=== PATIENT | male | born 1965 | race Caucasian/White ===

== ENCOUNTER 2021-07-24 13:04 | Outpatient (REF) | payer OTHER, SELFPAY ==
[2021-07-24 14:25] LABS: Alanine Aminotransferase 38 U/L (0-40); Anion Gap 12 (12-20); Aspartate Amino Transferase 68 U/L (5-37); Blood Urea Nitrogen 9 mg/dL (9-16); Calcium 9.4 mg/dL (8.4-10.2); Carbon Dioxide 22 mmol/L (22-29); Chloride 108 mmol/L (96-108); Cholesterol 195 mg/dL; Estimated Glomerular Filt Rate > 60; Glucose Fasting 124 mg/dL (60-99); HDL Cholesterol 44 mg/dL; LDL Cholesterol Calculated 103 mg/dl; Potassium 4.1 mmol/L (3.3-5.1); Sodium 138 mmol/L (135-145); Triglycerides 241 mg/dL
== END 2021-07-24 13:05 | disposition home or self-care (01) ==
LOC: HO.HMGCLDS 13:04
PROVIDERS: Visit Provider Internal Medicine
DX: I10 Essential (primary) hypertension (principal)
CPT/HCPCS: 36415; 80048; 80061; 84450; 84460

== ENCOUNTER 2022-03-30 07:53 | Outpatient (REF) | payer OTHER, MEDICAID, SELFPAY ==
--- NOTE | ~2022-03-30 | XR_ITS ---
EXAMINATION: XR SHOULDER, RIGHT CLINICAL INFORMATION: Pain COMPARISON: None TECHNIQUE: 3 views of the right shoulder. FINDINGS: The bones and soft tissues are normal. No fracture. Glenohumeral and acromioclavicular alignment is anatomic with normal joint space. No abnormal soft tissue calcifications. XR/XR shoulder RT min 2V IMPRESSION: Unremarkable right shoulder.
== END 2022-03-30 07:54 | disposition home or self-care (01) ==
LOC: HO.HOSX 07:53
PROVIDERS: Visit Provider Physician Assistant
DX: M75.101 Unspecified rotator cuff tear or rupture of right shoulder, not specified as traumatic (principal)
CPT/HCPCS: 20610; 73030; J1040

== ENCOUNTER 2022-04-21 14:00 | Outpatient (RCR) | payer OTHER, MEDICAID, SELFPAY ==
--- NOTE | 2022-03-17 13:06 | MHC.PT.EP ---
[facility] [place] Office [place] Office [place] Office [address] Demarcus Carter [address] [phone] F: [phone] F: [phone] F: [phone] F: [phone] Physical Therapy Plan of Care Date of Evaluation: Date of Surgery: Diagnosis: This is a 56 yo male presenting to skilled PT with a script for R sciatica. Assessment: This is a 56 yo male presenting to skilled PT with a script for R sciatica. Patient presented to the walk-in clinic on 02/18 complaining of right lower back pain radiating to right thigh. He reports that he pulled something in his back but is unable to tell me how or when he did it. 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 He was placed on meloxicam and tramadol which did not help much. He followed up with his PCP on 03/10 who put him on prednisone, cyclobenzaprine and ordered PT. He denies any history of trauma, no history of falls, no lifting incidents at work. Today at eval pain is located at the R side low back, R hip, thigh and lower leg to foot (foot is numb). Pain runs posteriorly down the leg and is described as a stabbing pain, like I am getting stuck with knives . Pain increases with walking, standing and laying in bed. Pain decreases with sitting some but is constant in nature. Assessment reveals pain that ranges up to a 8/10 and is constant in nature. He demos decreased RLE and lumbar ROM, decreased RLE and core/back strength, impaired gait pattern due to pain as well as gross functional decline with work related tasks, walking and most prolonged positioning. He is a good/fair candidate for skilled PT 2x/wk for 4 wks. He does not have a date to return to his PCP but states that he is supposed to go back to work tonight and does not feel like he can. Educated him that I cannot write him a note to remain out of work. Patient tended to perseverate on this so I educated him to walk next door to speak with his PCP about FMLA and note. Educated him to call office to schedule once he figures out his work schedule. 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 Manual therapy to restore motion and function. Therapeutic exercise to improve strength and flexibility. Neuromuscular re-education for posture and balance. Therapeutic activities to return to functional activities of daily living. Electronically signed by: Angelita Choudhury PT Please sign and return to therapist. Thank you for your referral.
--- NOTE | 2022-08-12 08:50 | MHC.PT.DC ---
[facility] [place] Office [place] Office [place] Office [address] Demarcus Carter [address] [phone] F: [phone] F: [phone] F: [phone] F: [phone] Physical Therapy Discharge Report Diagnosis: This is a 56 yo male presenting to skilled PT with a script for R sciatica. Date of Surgery: Date of Evaluation: 03/17/22 Date of Discharge: 08/12/22 Treatments to Date: 7 Cancellations to Date: 0 No Shows to Date: 0 Discharge Status: Improved Function Independent with HEP Patient Elected to Stop Discharge Summary: Pt did not follow up with his last visit for a final assessment. From last treatment note: DC anticipated Next Visit as Pt is I with his basic program for lumbar stab and though he persists with LE sx and LBP he reports he is able to centralize and improve his symptoms. Electronically signed by: Edward Lindsey PT. Please sign and return to therapist. Thank you for your referral.
== END 2022-08-12 08:50 | disposition home or self-care (01) ==
LOC: HO.PTCHIC 14:00
PROVIDERS: PCP Internal Medicine; Visit Provider Internal Medicine
DX: M54.31 Sciatica, right side (principal)
CPT/HCPCS: 97110; 97162; 97530

== ENCOUNTER 2022-06-22 14:00 | Outpatient (RCR) | payer OTHER, MEDICAID, SELFPAY ==
--- NOTE | 2022-05-27 17:35 | MHC.PT.EP ---
[facility] [place] Office [place] Office [place] Office [address] Gayath[address] [phone] F: [phone] F: [phone] F: [phone] F: [phone] Physical Therapy Plan of Care Date of Evaluation: Date of Surgery: Diagnosis: Painful arc syndrome of right shoulder Assessment: Pt is a 56 y/o male referred to PT for eval and treat of painful arc syndrome of R shoulder resulting in decreased tolerance for reaching high shelves, dressing pullovers, reaching his back and neck for hygiene and dressing, lifting objects of weight and performing HH chores secondary to decreased R shoulder ROM and strength, decreased scapular posture, TTP of anterior and posterior R shoulder, and pain. Pt is deemed an appropriate candidate to receive skilled PT services to address their physical impairments in order to improve his functional ability. Frequency and Duration: The patient will be seen 2 x / wk x 5 wks. Short Term Goals: Initiate HEP. Symmetrical AROM shoulder flexion achieved. Cryptologic Supervisor Goals: I with HEP. Pt will be able to place objects on high shelf with at most 3/10 difficulty; initial: 10/10 difficulty. Improve R shoulder ER MMT by at least 1/2 MMT grade. Pt will be able to reach his back for dressing and hygiene with managed Sx. initial 7/10 difficulty. Treatment Plan: Modalities to reduce pain, spasms and effusion. Manual therapy to restore motion and function. Therapeutic exercise to improve strength and flexibility. Neuromuscular re-education for posture and balance. Therapeutic activities to return to functional activities of daily living. Electronically signed by: Edward Lindsey PT. Please sign and return to therapist. Thank you for your referral.
--- NOTE | 2022-08-12 08:38 | MHC.PT.DC ---
[facility] [place] Office [place] Office [place] Office [address] Demarcus Carter 140 [facility] [phone] F: [phone] F: [phone] F: [phone] F: [phone] Physical Therapy Discharge Report Diagnosis: Painful arc syndrome of right shoulder Date of Surgery: Date of Evaluation: 05/27/22 Date of Discharge: 08/12/22 Treatments to Date: 6 Cancellations to Date: 0 No Shows to Date: 0 Discharge Status: Independent with HEP Patient Elected to Stop Discharge Summary: Electronically signed by: Edward Lindsey PT. Please sign and return to therapist. Thank you for your referral.
== END 2022-08-12 08:37 | disposition home or self-care (01) ==
LOC: HO.PTCHIC 14:00
PROVIDERS: PCP Internal Medicine; Visit Provider Physician Assistant
DX: M75.101 Unspecified rotator cuff tear or rupture of right shoulder, not specified as traumatic (principal)
CPT/HCPCS: 97110; 97161

== ENCOUNTER 2022-11-23 13:58 | Outpatient (REF) | payer OTHER, MEDICAID, SELFPAY ==
[2022-11-23 16:52] LABS: Alanine Aminotransferase 34 U/L (0-40); Anion Gap 11 (12-20); Aspartate Amino Transferase 47 U/L (5-37); Blood Urea Nitrogen 11 mg/dL (9-16); Calcium 8.9 mg/dL (8.4-10.2); Carbon Dioxide 25 mmol/L (22-29); Chloride 109 mmol/L (96-108); Cholesterol 183 mg/dL; Estimated Glomerular Filt Rate > 60; Glucose Fasting 102 mg/dL (60-99); HDL Cholesterol 56 mg/dL; LDL Cholesterol Calculated 102 mg/dl; Potassium 4.2 mmol/L (3.3-5.1); Sodium 141 mmol/L (135-145); Triglycerides 128 mg/dL
[2022-11-23 17:09] LABS: Vitamin D 25-OH Total 4.9 ng/mL (>30)
== END 2022-11-23 13:59 | disposition home or self-care (01) ==
LOC: HO.HMGCLDS 13:58
PROVIDERS: PCP Internal Medicine; Visit Provider Internal Medicine
DX: D12.6 Benign neoplasm of colon, unspecified (principal); E66.9 Obesity, unspecified; I10 Essential (primary) hypertension
CPT/HCPCS: 36415; 80048; 80061; 82306; 84450; 84460

== ENCOUNTER 2022-12-21 10:32 | Outpatient (AMB) | payer OTHER, MEDICAID, SELFPAY ==
--- NOTE | 2022-12-21 11:13 | MHC.PC.OV ---
Vital Signs 12/21/22 11:15 Height 6 ft 2 in Weight 255 lb BMI 32.7 BP 130/90 H Blood Pressure Location Lt brachial Position Sitting Pulse 83 Pulse Source Pulse Oximeter Pulse Oximetry (%) 95 Oxygen Delivery Method Room Air Intake Visit Reasons: Possible side effects from medication? Intake Note: Pt is here today c/o ED and says it due to possible side effects from his b/p med Allergies No Known Allergies Allergy (Verified 09/17/24 15:57) Medication List - Last Reconciled 09/17/24 by Diane White MD amlodipine 5 mg PO QAM cholecalciferol (vitamin D3) 1,250 mcg PO 2XW 3 months tadalafil (Cialis) 20 mg PO .PRN PRN 30 days Tobacco use date assessed: 12/21/22 HPI Possible side effects from medication? HPI Details 58-year-old male with history of obesity, hypertension, presenting today complaining of erectile dysfunction which he thinks is a side effect from taking his amlodipine prescription. Has been having hard time maintaining being held directions during sexual intercourse and has been having infrequent morning erections. Denies any other complaints. [facility] Medical History Vitamin D deficiency Erectile dysfunction Sciatica, right side Tubular adenoma of colon Chronic right shoulder pain Obesity (BMI 30.0-34.9) Essential hypertension Surgical History Hx of colonoscopy Family History Unknown Substance use disorder Social History Housing: House Patient Tobacco Use Status: Current everyday Tobacco user Tobacco use type: Cigar e-Cigarette/Vaping Use: Never Used service: No Current occupational status: employed Current occupation: left hand dominant Cognitive needs: No Hearing needs: No Vision needs: No Questionnaire PHQ-9 Over the last 2 weeks, how often have you been bothered by any of the following problems? 1. Little interest or pleasure in doing things: not at all 2. Feeling down, depressed, or hopeless: not at all 3. Trouble falling or staying asleep, or sleeping too much: several days 4. Feeling tired or having little energy: not at all 5. Poor appetite or overeating: not at all 6. Feeling bad about yourself - or that you are a failure or have let yourself or your family down: not at all 7. Trouble concentrating on things, such as reading the newspaper or watching television: not at all 8. Moving or speaking so slowly that other people could have noticed. Or the opposite - being so fidgety or restless that you have been moving around a lot more than usual: not at all 9. Thoughts that you would be better off or of hurting yourself in some way: not at all Total score: 1 Depression Screening Interpretation: Negative 97884 - PHQ-9 Billing: Yes Source: Developed by Drs. Catalino Curtis, Kaelyn Smith, Carlos Wallace and colleagues, with an educational moises from [employer]. Thrive Questionnaire Date Thrive assessed: 08/03/22 I am a: Patient What is your living situation today?: I have a steady place to live Within the past 12 months, did the food you bought not last and you didn't have the money to get more?: Never true Within the past 12 months, did you worry whether your food would run out before you got money to buy more?: Never true Do you have trouble paying for medicines?: No Do you have trouble getting transportation to medical appointments?: No Do you have trouble paying your heating and electricity bill?: No Do you have trouble taking care of your child, family member or friend?: No Do you have trouble with day-to-day activities such as bathing, preparing meals, shopping, managing finances, etc.?: No Are you currently unemployed and looking for a job?: No Are you interested in more education?: No AUDIT C Alcohol Use Questionnaire (AUDIT-C) 1. How often do you have a drink containing alcohol?: Monthly or less 2. How many drinks containing alcohol do you have on a typical day when you are drinking?: 1 or 2 3. How often do you have six or more drinks on one occasion?: Never Total Score: 1 KAROLINE-7 AMB Questionnaire KAROLINE-7 Date KAROLINE - 7 assessed: 12/21/22 Feeling nervous, anxious, or on edge: 0 = Not at all Not being able to stop or control worryin = Not at all Worrying too much about different things: 0 = Not at all Trouble relaxin = Not at all Being so restless that it is hard to sit still: 0 = Not at all Becoming easily annoyed or irritable: 0 = Not at all Feeling afraid as if something awful might happen: 0 = Not at all Total KAROLINE-7 score (0-4 normal; 5-9 mild; 10-14 moderate; 15-21 severe): 0 Source: Developed by Drs. Catalino Curtis, Kaelyn Smith, Carlos Wallace and colleagues, with an educational moises from [employer]. KAROLINE-7 Assessment Billing KAROLINE-7 Assessment Tool: KAROLINE-7 Assessment 45577 Review of Systems Const All systems reviewed & are unremarkable except as noted in HPI and below Physical exam (Primary Care) Vital Signs: Last Vital Signs Pulse 83 12/21/22 11:15 BP 130/90 H 12/21/22 11:15 Pulse Ox 95 12/21/22 11:15 Oxygen Delivery Method Room Air 12/21/22 11:15 BMI result Body Mass Index 32.7 Tobacco/Smoking Status: Tobacco use Status Tobacco use date assessed 12/21/22 12/21/22 11:20 Patient Tobacco Use Status Current everyday Tobacco 12/21/22 11:15 Tobacco use type Cigar 12/21/22 11:15 e-Cigarette/Vaping Use Never Used 12/21/22 11:15 PHQ-9: PHQ-9 Score PHQ-9: Total score 1 12/21/22 11:35 Depression Screening Interpretation: Negative Thrive Assessment: Date of Thrive Assessment Date Thrive assessed 08/03/22 12/21/22 11:15 Const Other: Obese, Alert oriented x3, no acute cardiorespiratory distress noted Orientation/consciousness: patient oriented x3 Neck Other: Thyroid gland non palpable Neck: Yes full ROM, Yes no lymphadenopathy and Yes supple Resp Auscultation: clear to auscultation bilaterally Cardio Other: S1-S2 present regular rate and rhythm GI Palpation (GI): Soft to palpation, nontender, no guarding and no masses Male General Exam: Yes normal external exam Neuro General: patient oriented x3, moves all extremities, Normal light touch and pain sensation and no focal motor deficits Psych Appearance: grossly normal and well kempt Mental Status: mental status grossly normal Affect: normal affect Coding Level of Care Code Est Pt Level 4 (97091) Diagnoses Erectile dysfunction N52.9 Vitamin D deficiency E55.9 Essential hypertension I10 Additional Codes KAROLINE-7 Assessment Billing - KAROLINE-7 Assessment Tool: KAROLINE-7 Assessment 60620 ([id number])
[2022-12-21 11:15] VITALS: BP 130/90; PULSE 83; O2SAT 95; BMI 32.7
== END 2022-12-21 11:38 | disposition home or self-care (01) ==
PROVIDERS: PCP Internal Medicine; Visit Provider Internal Medicine
DX: N52.9 Male erectile dysfunction, unspecified (principal); E55.9 Vitamin D deficiency, unspecified; I10 Essential (primary) hypertension
CPT/HCPCS: 99499

== ENCOUNTER 2023-02-22 15:05 | Outpatient (AMB) | payer OTHER, SELFPAY ==
--- NOTE | 2023-02-22 15:05 | A.OFFVIS_ITS ---
Intake Intake Visit Reasons: Erectile Dys Intake Note: New Patient presents for initial visit Erectile Dysfunction Urology Medications: none Blood Thinner: none Diabetic: no Inhalation Therapy Teacher Required: No Accompanied by: Self / Same As Patient Allergies No Known Allergies Allergy (Verified 02/23/23 19:45) Medication List - Last Reconciled 02/23/23 by JAMES Mejia amlodipine 5 mg PO QAM cholecalciferol (vitamin D3) 1,250 mcg PO 2XW 3 months tadalafil (Cialis) 20 mg PO .PRN PRN 30 days HPI HPI Comments History of Present Illness Details Sean is a very pleasant 57-year-old male patient of Dr. White. He has a past medical history of chronic right shoulder pain, erectile dysfunction, hypertension, obesity, vitamin-D deficiency, and tubular adenoma of colon. He presents to the office today as a new patient for erectile dysfunction. In discussion with the patient today he reports to be having intermittent issues with erectile dysfunction. He reports at times he gets morning erections as well as adequate erections for penetration however describes these episodes as very infrequent. 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 He also endorses to using recreational marijuana at times in smokes cigars daily. He denies any signs and symptoms of sleep apnea. When asked he denies any issues with his urination. He denies urinary urgency, urinary frequency, incontinence, nocturia, hematuria, dysuria, foul smelling urine, changes to urinary stream, flank pain, fever, and or chills. He is happy with his current voiding parameters. Discussed at length lifestyle modifications to assist with erectile dysfunction as well as overall health and well-being. JOEY offered however deferred. In office urinalysis results reviewed with the patient today. He otherwise offers no issues or concerns at this time. [facility] Medical History Chronic right shoulder pain Erectile dysfunction Essential hypertension Obesity (BMI 30.0-34.9) Sciatica, right side Tubular adenoma of colon Vitamin D deficiency Surgical History Hx of colonoscopy Family History Unknown Substance use disorder Social History Housing: House Patient Tobacco Use Status: Current everyday Tobacco user Tobacco use type: Cigar e-Cigarette/Vaping Use: Never Used service: No Current occupational status: employed Current occupation: left hand dominant Cognitive needs: No Hearing needs: No Vision needs: No Review of Systems Const Reports as per HPI Eyes Reports no additional complaints ENT Reports no additional complaints Card Reports as per HPI Resp Reports no additional complaints GI Reports as per HPI Reports as per HPI Musc Reports as per HPI Neuro Reports no additional complaints Psych Reports no additional complaints Physical Exam Const General: cooperative, comfortable, no acute distress, well developed, alert and awake Nutritional Appearance: overweight Orientation/consciousness: patient oriented x3 Limitations: no limitations HEENT Head: Yes normal to inspection, Yes normocephalic and Yes atraumatic Ears: hearing grossly normal bilaterally Eyes General: appearance normal, both eyes and all related structures Neck Neck: Yes normal visual inspection and Yes trachea midline Chest Chest palpation & inspection: normal inspection of the chest Resp Effort & Inspection: normal respiratory effort and able to speak in complete sentences Cardio Rate: regular rate GI Inspection: Yes normal to inspection General: Yes no CVA tenderness Back/Spine/Pelvis Back: no CVA tenderness Skin General skin exam: no rashes or lesions noted Neuro General: patient oriented x3 Extrem General: Yes normal to inspection Psych Appearance: grossly normal and well kempt Mental Status: mental status grossly normal Speech and movement: Normal speech and movement present and Clear speech present Affect: normal affect Attitude: cooperative Thought process: Normal thought process present Thought content: Normal thought content present Insight: Good insight present (Psych) Judgement: Good judgement present (Psych) Results AMB Urinalysis, Automated UA Leukoctes 0 Chante/uL Last Edit by SevenLunchesbet[employer] Contreras on 02/22/23 15:20 UA Nitrite Last Edit by [employer] Ben on 02/22/23 15:20 UA Urobilinogen 0.2 mg/dL Last Edit by SevenLunchesbeto Contreras on 02/22/23 15:20 UA Protein 0 mg/dL Last Edit by SevenLunchesbeto Contreras on 02/22/23 15:20 UA pH 6.0 Last Edit by [employer] Ben on 02/22/23 15:20 UA Blood 0 Gideon/uL Last Edit by Maritza Conrteras on 02/22/23 15:20 UA Specific [place] 1.015 Last Edit by Maritza Jonesnik on 02/22/23 15:20 UA Ketone Last Edit by Maritza Jonesnik on 02/22/23 15:20 UA Bilirubin 0 mg/dL Last Edit by Seanmalcolm Karennik on 02/22/23 15:20 UA Glucose 0 mg/dL Last Edit by Seanmalcolm Karennik on 02/22/23 15:20 Results Reviewed Results Reviewed: Laboratory Last Values Urine pH (Auto) 6.0 02/22/23 15:07 Specific [place] (Auto) 1.015 02/22/23 15:07 Urine Protein (Auto) 0 mg/dL 02/22/23 15:07 Glucose (UA)(Auto) 0 mg/dL 02/22/23 15:07 Urine Blood (Auto) 0 Gideon/uL 02/22/23 15:07 Urine Bilirubin (Auto) 0 mg/dL 02/22/23 15:07 Urine Urobilinogen (Auto) 0.2 mg/dL 02/22/23 15:07 Leukocyte Esterase (Auto) 0 Chante/uL 02/22/23 15:07 Assessment & Plan Assessment & Plan (1) Erectile dysfunction: Code(s): N52.9 - Male erectile dysfunction, unspecified (2) Low libido: Code(s): R68.82 - Decreased libido Plan In office urinalysis results reviewed with the patient today. Discussed at length lifestyle modifications such as adequate sleep, weight loss, limiting/ quitting smoking for improvement in erectile dysfunction as well as overall health and well-being Will obtain PSA, testosterone free and total for further assessment evaluation. Prescription provided for p.r.n. tadalafil as needed for sexual activity. Patient otherwise denies any urinary issues or concerns at this time. Patient reports to be happy with current voiding parameters. Follow up in one month with labs to be completed prior; or sooner with any ques tions, concerns, and or issues. Orders: Orders Prostate Specific Antigen 02/22/23 N40.0 - Benign prostatic hyperplasia without lower urinary tract symptoms Testosterone, Free/Total 02/22/23 N52.9 - Male erectile dysfunction, unspecified AMB Urinalysis Automated 02/22/23 Z13.9 - Encounter for screening, unspecified Medications: New tadalafil (Cialis) administer approximately 30min before sexual activity; do not use more than 1 dose per 24hrs [id number] [facility] [id number] Member [id number] 20 mg PO .PRN 30 days PRN 60 tabs 0RF sexual activity Patient Instructions: The patient had an opportunity to ask questions regarding the treatment plan. All questions were answered. Physical exam, labs, and imaging were discussed and reviewed in detail. As well as risks, benefits, and discussion of treatment choices. No major barriers to understanding were identified. The patient expressed understanding and agreement with the above treatment plan. The patient was made aware they should contact our office by phone for worsening of their current condition, the appearance of new symptoms, or with any questions or concerns. Compliance is encouraged with any medications and follow up testing that is ordered. It is a privilege to be allowed the opportunity to participate in? your urological care.? Again, if you have any questions or concerns If you have any questions or concerns please do not hesitate to contact me. The office is [phone]. This note is constructed using voice recognition software. While every effort has been made to ensure accuracy laborer airport maintenance errors may have been included. Yours sincerely, JAMES Mejia Coding Level of Care Code New Pt Level 4 (53844) Diagnoses Erectile dysfunction N52.9 Low libido R68.82
== END 2023-02-22 15:56 | disposition home or self-care (01) ==
PROVIDERS: PCP Internal Medicine; Visit Provider Nurse Practitioner Family
DX: N52.9 Male erectile dysfunction, unspecified (principal); R68.82 Decreased libido
CPT/HCPCS: 99204

== ENCOUNTER → 2023-02-22 15:05 | Outpatient (BNVA) | payer OTHER, MEDICAID, SELFPAY | PROVIDERS: PCP Internal Medicine; Visit Provider Nurse Practitioner Family ==

== ENCOUNTER 2023-04-23 13:48 | Outpatient (REF) | payer OTHER, SELFPAY ==
[2023-04-29 13:44] LABS: Testosterone, Free 46.5 pg/mL (35.0-155.0); Testosterone, Total 517 ng/dL (250-1100)
== END 2023-04-23 13:49 | disposition home or self-care (01) ==
LOC: HO.HMGCLDS 13:48
PROVIDERS: PCP Internal Medicine; Visit Provider Internal Medicine
DX: Z12.5 Encounter for screening for malignant neoplasm of prostate (principal); N52.9 Male erectile dysfunction, unspecified; E55.9 Vitamin D deficiency, unspecified; N40.0 Benign prostatic hyperplasia without lower urinary tract symptoms; I10 Essential (primary) hypertension
CPT/HCPCS: 36415; 80048; 82306; 84153; 84402; 84403

== ENCOUNTER 2025-02-19 12:56 | Outpatient (REF) | payer OTHER, SELFPAY ==
[2025-02-19 16:31] LABS: Hemoglobin A1C 154.5750 umol/L; Total Hemoglobin (HGBA1C) 4187.0716 umol/L
[2025-02-19 16:38] LABS: Alanine Aminotransferase 43 U/L (0-40); Anion Gap 11 (12-20); Aspartate Amino Transferase 70 U/L (5-37); Blood Urea Nitrogen 7 mg/dL (9-16); Calcium 8.8 mg/dL (8.4-10.2); Carbon Dioxide 24 mmol/L (22-29); Chloride 109 mmol/L (96-108); Cholesterol 177 mg/dL (<200); Estimated Glomerular Filt Rate > 60; HDL Cholesterol 54 mg/dL (>40); Potassium 4.0 mmol/L (3.3-5.1); Sodium 140 mmol/L (135-145); Triglycerides 90 mg/dL (<150)
[2025-02-19 16:54] LABS: PSA,Total (Free>4and<10) 0.99 ng/mL (0.00-4.00)
== END 2025-02-19 12:57 | disposition home or self-care (01) ==
LOC: HO.HMGCLDS 12:56
PROVIDERS: PCP Internal Medicine; Visit Provider Internal Medicine
DX: I10 Essential (primary) hypertension (principal); E66.9 Obesity, unspecified; E55.9 Vitamin D deficiency, unspecified; R73.01 Impaired fasting glucose; Z12.5 Encounter for screening for malignant neoplasm of prostate
CPT/HCPCS: 36415; 80048; 80061; 82306; 83036; 84153; 84450; 84460

== ENCOUNTER 2025-02-28 08:13 | Outpatient (AMB) | payer OTHER, SELFPAY ==
--- NOTE | 2025-02-28 08:17 | A.OFFPC_ITS ---
Vital Signs 02/28/25 08:19 Height 6 ft 2 in Weight 237 lb BMI 30.4 BP 136/82 Blood Pressure Location Rt brachial Position Sitting Pulse 79 Pulse Source Pulse Oximeter Temp 98.0 F Temp Source Oral Pulse Oximetry (%) 95 Oxygen Delivery Method Room Air Intake Visit Reasons: medication Intake Note: Pt is here today to request refills for his b/p medication Allergies No Known Allergies Allergy (Verified 02/28/25 08:37) Medication List - Last Reconciled 02/28/25 by Diane White MD amlodipine 5 mg PO QAM Tobacco use date assessed: 02/28/25 Dental Screening Dental Screen Date: 02/28/25 Did you have a dental visit in the last 12 months?: No Did you have a dental problem in the last 6 months where you did not have access to dental care?: No Was dental information given to patient?: Patient declined HPI medication HPI Details 59-year-old male with history of hyperte nsion, here today for follow- up. He has been taking amlodipine 5 mg once a day, with blood pressure stable and controlled on present treatment. He has stopped smoking cigarettes but occasionally smoke cigars and drinks at least 2 to 3 times a week, mainly beer. Latest fasting labs showed normal electrolytes and renal function, but fasting glucose is in the prediabetic range. Hemoglobin A1c is at 5.5%. Liver enzymes elevated. Total cholesterol within normal limits. History of adenomatous polyps removed on last colonoscopy done by Dr. Nava in 2019. Overdue for a recheck. Will refer back today for a repeat colonoscopy. Vitamin-D level on recent labs was noted to be deficient at 13 ng/mL he works nights, sleeps most of the day, does complain of frequent episodes of having no energy. [facility] Medical History (Updated 02/28/25 @ 08:50 by Diane White MD) History of adenomatous polyp of colon Vitamin D deficiency Erectile dysfunction Tubular adenoma of colon Chronic right shoulder pain Obesity (BMI 30.0-34.9) Essential hypertension Surgical History Hx of colonoscopy Family History Unknown Substance use disorder Social History (Updated 08/13/25 @ 08:51 by Diane White MD) Housing: House Patient Tobacco Use Status: Former Tobacco user Tobacco use type: Cigar e-Cigarette/Vaping Use: Never Used service: No Current occupational status: employed Current occupation: left hand dominant Cognitive needs: No Hearing needs: No Vision needs: No Questionnaire PHQ-9 Over the last 2 weeks, how often have you been bothered by any of the following problems? 34776 - PHQ-9 Billing: Patient declined-do not bill Source: Developed by Drs. Catalino Curtis, Kaelyn Smith, Carlos Wallace and colleagues, with an educational moises from [employer]. Thrive Questionnaire Date Thrive assessed: 02/28/25 What is your living situation today?: I choose not to answer this question Within the past 12 months, did the food you bought not last and you didn't have the money to get more?: I choose not to answer this question Within the past 12 months, did you worry whether your food would run out before you got money to buy more?: I choose not to answer this question Do you have trouble paying for medicines?: I choose not to answer this question Do you have trouble getting transportation to medical appointments?: I choose not to answer this question Do you have trouble paying your heating and electricity bill?: I choose not to answer this question Do you have trouble taking care of your child, family member or friend?: I choose not to answer this question Do you have trouble with day-to-day activities such as bathing, preparing meals, shopping, managing finances, etc.?: I choose not to answer this question Are you currently unemployed and looking for a job?: I choose not to answer this question Are you interested in more education?: I choose not to answer this question Please select the resources that you would like help with: None Currently or been in a relationship where the following occur: I choose not to answer THRIVE Score: 0 AUDIT C Alcohol Use Questionnaire (AUDIT-C) 1. How often do you have a drink containing alcohol?: 2-3 times a week 2. How many drinks containing alcohol do you have on a typical day when you are drinking?: 3 or 4 3. How often do you have six or more drinks on one occasion?: Never Total Score: 4 Score Reviewed/Action Taken: Yes KAROLINE-7 AMB Questionnaire KAROLINE-7 Date KAROLINE - 7 assessed: 02/28/25 Source: Developed by Drs. Catalino Curtis, Kaelyn Smith, Carlos Wallace and colleagues, with an educational moises from [employer]. Review of Systems Const Denies fever(s), Denies headache(s) and Denies weakness Eyes Denies change in vision and Reports requires corrective lenses ENT Denies dizziness, Denies headache(s), Denies nasal congestion and Denies sore throat Card Denies chest pain, Denies lightheadedness and Denies dyspnea Resp Denies chest congestion, Denies cough and Denies dyspnea GI Denies abdominal pain, Denies change in bowel habits and Denies heartburn Denies dysuria, Denies urinary frequency and Denies urinary urgency Musc Reports no additional complaints Skin/Breast Denies lesions and Denies rash Neuro Denies dizziness, Denies headache(s), Denies Sensory deficit (Neuro) and Denies weakness Psych Reports no additional complaints Endo Reports no additional complaints Weston/Lymph Reports no additional complaints Aller/Immun Denies seasonal rhinorrhea Physical exam (Primary Care) Vital Signs: Last Vital Signs Temp 98.0 F 02/28/25 08:19 Pulse 79 02/28/25 08:19 BP 136/82 02/28/25 08:19 Pulse Ox 95 02/28/25 08:19 Oxygen Delivery Method Room Air 02/28/25 08:19 BMI result Body Mass Index 30.4 Tobacco/Smoking Status: Tobacco use Status Tobacco use date assessed 02/28/25 02/28/25 08:26 Patient Tobacco Use Status Current everyday Tobacco 02/28/25 08:19 Tobacco use type Cigar 02/28/25 08:19 e-Cigarette/Vaping Use Never Used 02/28/25 08:19 Thrive Assessment: Date of Thrive Assessment Date Thrive assessed 02/28/25 02/28/25 08:26 Currently or been in a relationship where the following occur: I choose not to answer Const Other: Obese, Alert oriented x3, no acute cardiorespiratory distress noted Orientation/consciousness: patient oriented x3 HENMT Face and sinus: Yes face symmetric Mouth: Normal oral and palatal mucosa present, oropharynx normal and moist mucous membranes Neck Neck: Yes full ROM, Yes no lymphadenopathy and Yes supple Resp Auscultation: clear to auscultation bilaterally Cardio Other: S1-S2 present regular rate and rhythm GI Inspection: Yes obesity Palpation (GI): Soft to palpation, nontender, no guarding and no masses Male General Exam: Yes normal external exam Neuro General: patient oriented x3, moves all extremities, Normal light touch and pain sensation and no focal motor deficits Sensory Exam: No Sensory deficit (Neuro) Extrem General: Yes full ROM, Yes no joint enlargement, Yes no clubbing, cyanosis or edema and Yes normal gait Psych Appearance: grossly normal and well kempt Mental Status: mental status grossly normal Affect: normal affect Coding Level of Care Code Est Pt Level 4 (50610) Diagnoses Essential hypertension I10 Vitamin D deficiency E55.9 History of adenomatous polyp of colon Z86.0101 Assessment & Plan Assessment & Plan (1) Essential hypertension: Code(s): I10 - Essential (primary) hypertension Category: Medical Plan: Continue with amlodipine 5 mg 1 tablet daily in the morning, reinforced importance of following a low salt diet, cut back on alcohol intake and cigarette smoking. (2) Vitamin D deficiency: Code(s): E55.9 - Vitamin D deficiency, unspecified Category: Medical Plan: Prescription sent for cholecalciferol 13398 units per capsule to take once a week for the next 3 months once finished taking prescription, to continue taking nnyz-[id number] vitamin-D 3 at 2000 units daily (3) History of adenomatous polyp of colon: Code(s): Z86.0101 - Personal history of adenomatous and serrated colon polyps Category: Medical Plan: Overdue for a repeat colonoscopy. Referred back to Dr. Nava Orders: Referrals Gastroenterology Referral Z86.0101 - Personal history of adenomatous and serrated colon polyps Medications: New cholecalciferol (vitamin D3) 1,250 mcg PO QWEEK 13 caps 0RF 3 months E55.9 - Vitamin D deficiency, unspecified Refilled amlodipine 5 mg PO QAM 90 tabs 4RF
[2025-02-28 08:19] VITALS: BP 136/82; PULSE 79; TEMP 36.7; O2SAT 95; BMI 30.4
== END 2025-02-28 08:46 | disposition home or self-care (01) ==
LOC: HO.HMCC 08:14
PROVIDERS: PCP Internal Medicine; Visit Provider Internal Medicine
DX: I10 Essential (primary) hypertension (principal); E55.9 Vitamin D deficiency, unspecified; Z86.0101 Personal history of adenomatous and serrated colon polyps

== ENCOUNTER 2025-06-06 11:43 | Outpatient (AMB) | payer OTHER, SELFPAY ==
[2025-06-06 11:50] VITALS: BP 134/84; PULSE 79; RESP 16; TEMP 36.6; O2SAT 95; BMI 30.6
--- NOTE | 2025-06-06 11:50 | A.OFFPC_ITS ---
Vital Signs 06/06/25 11:50 Height 6 ft 2 in Weight 238 lb BMI 30.6 BP 134/84 Blood Pressure Location Lt brachial Position Sitting Respiration 16 Pulse 79 Pulse Source Pulse Oximeter Temp 97.8 F Temp Source Oral Pulse Oximetry (%) 95 Oxygen Delivery Method Room Air Intake Visit Reasons: Annual PE Intake Note: Pt is here today for his PE: Last cplonoscopy 11/17/18 Allergies No Known Allergies Allergy (Verified 06/06/25 12:06) Medication List - Last Reconciled 06/06/25 by Diane White MD amlodipine 5 mg PO QAM cholecalciferol (vitamin D3) 1,250 mcg PO QWEEK 3 months Tobacco use date assessed: 06/06/25 Dental Screening Dental Screen Date: 06/06/25 Did you have a dental visit in the last 12 months?: No Did you have a dental problem in the last 6 months where you did not have access to dental care?: No Was dental information given to patient?: Patient declined [facility] Medical History (Updated 06/06/25 @ 12:20 by Diane White MD) Cigar smoker Impaired fasting glucose History of adenomatous polyp of colon Vitamin D deficiency Erectile dysfunction Tubular adenoma of colon Chronic right shoulder pain Obesity (BMI 30.0-34.9) Essential hypertension Surgical History Hx of colonoscopy Family History Unknown Substance use disorder Social History (Updated 02/28/25 @ 08:51 by Diane White MD) Housing: House Patient Tobacco Use Status: Former Tobacco user Tobacco use type: Cigar e-Cigarette/Vaping Use: Never Used service: No Current occupational status: employed Current occupation: left hand dominant Cognitive needs: No Hearing needs: No Vision needs: No Questionnaire PHQ-9 Over the last 2 weeks, how often have you been bothered by any of the following problems? 52393 - PHQ-9 Billing: Patient declined-do not bill Source: Developed by Drs. Catalino Curtis, Kaelyn Smith, Carlos Wallace and colleagues, with an educational moises from [employer]. Thrive Questionnaire Date Thrive assessed: 02/28/25 What is your living situation today?: I choose not to answer this question Within the past 12 months, did the food you bought not last and you didn't have the money to get more?: I choose not to answer this question Within the past 12 months, did you worry whether your food would run out before you got money to buy more?: I choose not to answer this question Do you have trouble paying for medicines?: I choose not to answer this question Do you have trouble getting transportation to medical appointments?: I choose not to answer this question Do you have trouble paying your heating and electricity bill?: I choose not to answer this question Do you have trouble taking care of your child, family member or friend?: I choose not to answer this question Do you have trouble with day-to-day activities such as bathing, preparing meals, shopping, managing finances, etc.?: I choose not to answer this question Are you currently unemployed and looking for a job?: I choose not to answer this question Are you interested in more education?: I choose not to answer this question Please select the resources that you would like help with: None Currently or been in a relationship where the following occur: I choose not to answer THRIVE Score: 0 AUDIT C Alcohol Use Questionnaire (AUDIT-C) 1. How often do you have a drink containing alcohol?: 2-3 times a week 2. How many drinks containing alcohol do you have on a typical day when you are drinking?: 3 or 4 3. How often do you have six or more drinks on one occasion?: Never Total Score: 4 KAROLINE-7 AMB Questionnaire KAROLINE-7 Date KAROLINE - 7 assessed: 02/28/25 Source: Developed by Drs. Catalino Curtis, Kaelyn Smith, Carlos Wallace and colleagues, with an educational moises from [employer]. Review of Systems Eyes Details: goes to [facility] [place] , ? glaucoma GI Details: overdue Physical exam (Primary Care) Vital Signs: Last Vital Signs Temp 97.8 F 06/06/25 11:50 Pulse 79 06/06/25 11:50 Resp 16 06/06/25 11:50 BP 134/84 06/06/25 11:50 Pulse Ox 95 06/06/25 11:50 Oxygen Delivery Method Room Air 06/06/25 11:50 BMI result Body Mass Index 30.6 Tobacco/Smoking Status: Tobacco use Status Tobacco use date assessed 06/06/25 06/06/25 11:53 Patient Tobacco Use Status Former Tobacco user 06/06/25 11:53 Tobacco use type Cigar 06/06/25 11:53 e-Cigarette/Vaping Use Never Used 06/06/25 11:53 Thrive Assessment: Date of Thrive Assessment Date Thrive assessed 02/28/25 06/06/25 11:53 Currently or been in a relationship where the following occur: I choose not to answer Office Procedures Flu Questionnaire Does the patient have a severe egg allergy?: No Does the patient have severe life threatening allergies?: No Does the patient have a fever or illness today?: No Has the patient ever had Guillain-Leonidas Syndrome?: No Has the patient ever had any past reaction to a flu shot?: No Immunizations Fluarix [id number] (PF) 45 mcg (15 mcg x 3)/0.5 mL IM syringe Performing Provider: Diane White MD Performing Location: [facility] [place] Adult Primary Care[facility] Administered by: Catrina Ramirez CMA on 06/06/25 12:04 Dose Route Admin Location Dispensed Lot Number Expiration Date [facility] [employer] 0.5 mL IM Right Deltoid 0.5 mL [id number] 01/15/26 [id number] [id number] VIS Given Date VIS Provided VIS Publication Date 06/06/25 Single Vaccine 24 Eligibility Eligibility Date Funding Source Not [facility] Eligible 06/06/25 Private Coding Diagnoses Essential hypertension I10 Obesity (BMI 30.0-34.9) E66.9 Vitamin D deficiency E55.9 Impaired fasting glucose R73.01 Abnormal bruising R23.3 History of adenomatous polyp of colon Z86.0101 Cigar smoker F17.290 Assessment & Plan Assessment & Plan (1) Essential hypertension: Code(s): I10 - Essential (primary) hypertension Category: Medical (2) Obesity (BMI 30.0-34.9): Code(s): E66.9 - Obesity, unspecified Category: Medical (3) Vitamin D deficiency: Code(s): E55.9 - Vitamin D deficiency, unspecified Category: Medical (4) Impaired fasting glucose: Code(s): R73.01 - Impaired fasting glucose Category: Medical (5) Abnormal bruising: Code(s): R23.3 - Spontaneous ecchymoses Category: Medical (6) History of adenomatous polyp of colon: Code(s): Z86.0101 - Personal history of adenomatous and serrated colon polyps Category: Medical (7) Cigar smoker: Code(s): F17.290 - Nicotine dependence, other tobacco product, uncomplicated Category: Social Hx Orders: Orders Comprehensive [place]. Panel Fast Today D12.6 - Benign neoplasm of colon, unspecified, E55.9 - Vitamin D deficiency, unspecified, E66.9 - Obesity, unspecified, I10 - Essential (primary) hypertension, R73.01 - Impaired fasting glucose, Z86.0101 - Personal history of adenomatous and serrated colon polyps Hemoglobin A1c Today D12.6 - Benign neoplasm of colon, unspecified, E55.9 - Vitamin D deficiency, unspecified, E66.9 - Obesity, unspecified, I10 - Essential (primary) hypertension, R73.01 - Impaired fasting glucose, Z86.0101 - Personal history of adenomatous and serrated colon polyps Influenza [id number] Immunization Today Z23 - Encounter for immunization Vitamin D 25-OH Total Today D12.6 - Benign neoplasm of colon, unspecified, E55.9 - Vitamin D deficiency, unspecified, E66.9 - Obesity, unspecified, I10 - Essential (primary) hypertension, R73.01 - Impaired fasting glucose, Z86.0101 - Personal history of adenomatous and serrated colon polyps Complete Blood Count Auto Diff Today E55.9 - Vitamin D deficiency, unspecified, E66.9 - Obesity, unspecified, I10 - Essential (primary) hypertension, R23.3 - Spontaneous ecchymoses, R73.01 - Impaired fasting glucose, Z86.0101 - Personal history of adenomatous and serrated colon polyps Prothrombin Time INR Today E55.9 - Vitamin D deficiency, unspecified, E66.9 - Obesity, unspecified, I10 - Essential (primary) hypertension, R23.3 - Spontaneous ecchymoses, R73.01 - Impaired fasting glucose, Z86.0101 - Personal history of adenomatous and serrated colon polyps Partial Thromboplastin Time Today E55.9 - Vitamin D deficiency, unspecified, E66.9 - Obesity, unspecified, I10 - Essential (primary) hypertension, R23.3 - Spontaneous ecchymoses, R73.01 - Impaired fasting glucose, Z86.0101 - Personal history of adenomatous and serrated colon polyps Referrals Lung Cancer Screening Referral F17.290 - Nicotine dependence, other tobacco product, uncomplicated
--- OUTSIDE RECORDS SUMMARY | 2025-06-06 22:52 | XMS_ITS | Patient Health Record ---
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 Name Role Phone Diane White MD Primary Care Provider Errol Johnson Jr Unavailable Reason For Referral No Information Medications Medication SIG (Take, Route, Frequency, Duration) Notes Start Date End Date Status Losartan Potassium 25 MG Tablet TAKE 1 TABLET BY MOUTH EVERY DAY Oral Once a day Active amLODIPine Besylate 5 MG Tablet TAKE 1 TABLET BY MOUTH EVERY MORNING Oral Once a day Active Gemfibrozil 600 MG Tablet TAKE 1 TABLET BY MOUTH TWICE A DAY Oral Twice a day Active Colyte with Flavor Packs 240 GM Solution Reconstituted As directed Orally Over the specified time.; Duration: 1 day(s) 09/14/2018 Active Immunizations Vaccine Route Administration Date Status Comme nts Influenza Unknown 09/14/2018 Refused Social History Tobacco Use: Social History Observation Description Date Details (start date - stop date) Current Smoker NA - NA Social History Drugs/Alcohol: Social Info Question Answer Notes Alcohol Screen Did you have a drink containing alcohol in the past year? Yes How often did you have a drink containing alcohol in the past year? 2 to 3 times a week (3 points) How many drinks did you have on a typical day when you were drinking in the past year? 5 or 6 drinks (2 points) How often did you have 6 or more drinks on one occasion in the past year? Weekly (3 points) Points 8 Interpretation Positive Tobacco Use: Social Info Question Answer Notes Tobacco Use/Smoking Patient is a current smoker How often do you smoke cigarettes? every day How many cigarettes a day do you smoke? 5 or less How soon after you wake up do you smoke your first cigarette? after 60 minutes Are you interested in quitting? 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 [address] [place] [address] [id number] Self - patient is the insured Medical (General) History Medical History History ICD Code hypertension elevated cholesterol impaired fasting glucose Surgical History Surgery Date(Month/Year)
== END 2025-06-06 12:28 | disposition home or self-care (01) ==
LOC: HO.HMCC 11:44
PROVIDERS: PCP Internal Medicine; Visit Provider Internal Medicine
DX: Z23 Encounter for immunization (principal)

== ENCOUNTER → 2025-06-06 11:43 | Outpatient (BNVA) | payer OTHER, SELFPAY | PROVIDERS: PCP Internal Medicine; Visit Provider Internal Medicine | DX: Z00.01 Encounter for general adult medical examination with abnormal findings (principal); Z23 Encounter for immunization; I10 Essential (primary) hypertension; E66.9 Obesity, unspecified; E55.9 Vitamin D deficiency, unspecified; R73.01 Impaired fasting glucose; R23.3 Spontaneous ecchymoses; Z86.0101 Personal history of adenomatous and serrated colon polyps; F17.290 Nicotine dependence, other tobacco product, uncomplicated; Z68.30 Body mass index [BMI] 30.0-30.9, adult | CPT/HCPCS: 90471; 90656 ==